=== PATIENT | male | born 2000 | race Caucasian/White ===

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

== ENCOUNTER 2020-07-19 06:45 | Emergency (ER) | payer OTHER ==
[~2020-07-19] VITALS: Ht 177.8 cm; Wt 97.5 kg
--- NOTE | 2020-07-19 06:45 | NUR ---
PT BIB MOM FOR C/O ONGOING NAUSEA/VOMITING X 2 HRS. PT IS AAOX4, NOT IN RESPIRATORY DISTRESS, HOOKED TO OUTSIDE FOOD SERVER, KEPT RESTED AND COMFORTABLE. WILL CONTINUE TO MONITOR.
--- NOTE | 2020-07-19 07:03 | NUR ---
AT BEDSIDE FOR EVAL.
[2020-07-19] MEDS ORDERED: MORPHINE SULFATE INJ 2 MG/ML DISP.SYRIN ONE (07:08)
[2020-07-19] MEDS ORDERED: ONDANSETRON HCL/PF 4 MG/2 ML VIAL ONE (07:08)
--- NOTE | 2020-07-19 07:20 | NUR ---
IV LINE ESTABLISHED BLOOD DRAWN AND SENT TO LAB.
[2020-07-19] MEDS ORDERED: ONDANSETRON HCL/PF 4 MG/2 ML VIAL IVP ONE (07:30)
[2020-07-19] MEDS ORDERED: MORPHINE SULFATE INJ 2 MG/ML DISP.SYRIN IV ONE (07:30)
[2020-07-19] MEDS ORDERED: IV NS 0.9% 1,000 ML BAG IV ONE (07:30)
[2020-07-19 07:35] LABS: BASOPHILS % (AUTO) 0.1 % (0.0-2.0); EOSINOPHILS % (AUTO) 0.5 % (0.0-6.0); HEMATOCRIT 52 % (39-51); HEMOGLOBIN 17.7 g/dL (13.5-17.5); LYMPHOCYTES # (AUTO) 0.4 /CMM (0.8-4.8); LYMPHOCYTES % (AUTO) 5.2 % (20.0-44.0); MEAN CORPUSCULAR HGB CONC 34 g/dl (31.0-36.0); MEAN CORPUSCULAR VOLUME 88 fL (80-96); MONOCYTES # (AUTO) 0.4 /CMM (0.1-1.30); NEUTROPHILS # (AUTO) 7.7 /CMM (1.8-8.9); NEUTROPHILS % (AUTO) 89.2 % (43.0-81.0); PLATELET COUNT (AUTO) 241 /CMM (150-450); RED BLOOD CELL COUNT(AUTO) 5.88 MIL/uL (4.5-6.0); WHITE BLOOD COUNT (AUTO) 8.6 K/uL (4.3-11.0)
[2020-07-19 08:06] LABS: ALBUMIN 4.4 g/dL (3.4-5.0); BILIRUBIN,DIRECT 0.2 mg/dL (0.0-0.2); BILIRUBIN,TOTAL 0.9 mg/dL (0.2-1.0); CALCIUM, SERUM 9.5 mg/dL (8.5-10.1); CREATININE 1.2 mg/dL (0.6-1.3); POTASSIUM 4.2 mmol/L (3.5-5.1); TOTAL PROTEIN, SERUM 8.6 g/dL (6.4-8.2)
[2020-07-19] MEDS ORDERED: ONDA4TAB5 PO (08:17)
[2020-07-19 08:26] VITALS: BP 128/84
--- NOTE | 2020-07-19 08:26 | NUR ---
IV removed. Catheter intact and site benign. Pressure and 4x4 applied to site. No bleeding noted. Patient discharged to home in stable condition. Written and verbal after care instructions given. Patient verbalizes understanding of instruction.
== END 2020-07-19 08:26 | disposition home or self-care (01) ==
LOC: ER 06:50
DX: A05.9 Bacterial foodborne intoxication, unspecified (principal); R11.2 Nausea with vomiting, unspecified; J45.909 Unspecified asthma, uncomplicated; F12.90 Cannabis use, unspecified, uncomplicated; Z88.0 Allergy status to penicillin; Z91.010 Allergy to peanuts; Z79.899 Other long term (current) drug therapy
CPT/HCPCS: 36415; 80048; 80076; 83690; 85025; 96361; 96374; 99283; J2405; J7030; J2270

== ENCOUNTER 2021-06-05 22:59 | Emergency (ER) | payer OTHER ==
[~2021-06-05] VITALS: Ht 177.8 cm; Wt 99.8 kg
[~2021-06-05 22:59] MED LIST changes: +ONDA4TAB5 PO
--- NOTE | 2021-06-05 23:15 | NUR ---
BIB MOM FOR C/O HIGH BP AND HR. HAD AN EPISODE OF COMITING YESTERDAY. TOOK HCTZ 25MG @ 1200 AND 1800. (NOT HIS PRESCRIBED MEDICATION). PATIENT ALERT AND ORIENTED X3. AMBULATORY WITH NON LABORED BREATHING. AWAITING MD DOBBINS.
--- NOTE | 2021-06-05 23:41 | NUR ---
BLOOD COLLECTED AND SENT TO LAB
[2021-06-05 23:45] LABS: BASOPHILS % (AUTO) 0.4 % (0.0-2.0); EOSINOPHILS % (AUTO) 1.2 % (0.0-6.0); HEMATOCRIT 53 % (39-51); HEMOGLOBIN 18.3 g/dL (13.5-17.5); LYMPHOCYTES # (AUTO) 2.8 K/uL (0.8-4.8); LYMPHOCYTES % (AUTO) 34.9 % (20.0-44.0); MEAN CORPUSCULAR HGB CONC 35 g/dl (31.0-36.0); MEAN CORPUSCULAR VOLUME 86 fL (80-96); MONOCYTES # (AUTO) 0.6 K/uL (0.1-1.30); MONOCYTES % (AUTO) 7.6 % (2.0-12.0); NEUTROPHILS # (AUTO) 4.5 K/uL (1.8-8.9); NEUTROPHILS % (AUTO) 55.9 % (43.0-81.0); PLATELET COUNT (AUTO) 233 K/uL (150-450); RED BLOOD CELL COUNT(AUTO) 6.19 MIL/uL (4.5-6.0); WHITE BLOOD COUNT (AUTO) 8.1 K/uL (4.3-11.0)
[2021-06-05 23:58] LABS: CALCIUM, SERUM 9.9 mg/dL (8.5-10.1); CARBON DIOXIDE 29 mmol/L (21-32); CHLORIDE 93 mmol/L (98-107); CREATININE 1.2 mg/dL (0.6-1.3); GLUCOSE 111 mg/dL (74-106); POTASSIUM 3.3 mmol/L (3.5-5.1); SODIUM SERUM 133 mmol/L (136-145); UREA NITROGEN, BLOOD 21 mg/dL (7-18)
--- NOTE | 2021-06-06 00:27 | NUR ---
JOHN ([facility] [place]) [phone]
[2021-06-06] MEDS ORDERED: LORAZEPAM 1 MG TABLET ONE (00:35)
[2021-06-06] MEDS ORDERED: LORAZEPAM 1 MG TABLET PO ONE (01:00)
[2021-06-06] MEDS ORDERED: LABETALOL HCL IV 100MG VIAL ONE (01:29)
[2021-06-06] MEDS ORDERED: LABETALOL HCL IV 100MG VIAL IV ONE (01:30)
[2021-06-06] MEDS ORDERED: METO50TA16 PO (02:13)
--- NOTE | 2021-06-06 02:23 | NUR ---
Patient discharged to home in stable condition. Written and verbal after care instructions given. Patient verbalizes understanding of instruction.
[2021-06-06 02:24] VITALS: BP 139/77
== END 2021-06-06 02:24 | disposition home or self-care (01) ==
LOC: ER 22:59
DX: R00.2 Palpitations (principal); R03.0 Elevated blood-pressure reading, without diagnosis of hypertension; J45.909 Unspecified asthma, uncomplicated; Z88.0 Allergy status to penicillin; Z91.010 Allergy to peanuts; Z79.51 Long term (current) use of inhaled steroids; Z79.1 Long term (current) use of non-steroidal anti-inflammatories (NSAID); Z79.899 Other long term (current) drug therapy
CPT/HCPCS: 36415; 71045; 80048; 84484; 85025; 93005; 96374; 99285; J3490

== ENCOUNTER 2022-05-13 00:03 | Emergency (ER) | payer OTHER ==
[~2022-05-13] VITALS: Ht 177.8 cm; Wt 90.7 kg
[~2022-05-13 00:03] MED LIST changes: +METO50TA16 PO
--- NOTE | 2022-05-13 00:34 | NUR ---
BIBS TO ER BED 7. AAOX4. SOB X 1400 WORST ION THE PAST 2 HRS. INHALER NOT HELPING. SATTING @ 95%. NOTED WHEEZING BILATERALLY. RT PAGED FOR BREATHING TX
[2022-05-13] MEDS ORDERED: DEXAMETHASONE SOD PHOSPHATE 4 MG/ML VIAL IM ONE (01:00)
[2022-05-13] MEDS ORDERED: DEXAMETHASONE SOD PHOSPHATE 10 MG/ML VIAL ONE (01:00)
[2022-05-13] MEDS ORDERED: ALBUTEROL FS 2.5 MG/0.5 ML VIAL.NEB ONE ×2 (01:04→01:50)
[2022-05-13] MEDS: ALBUTEROL FS 2.5 MG/0.5 ML VIAL.NEB NEB ONE ×2 (01:04→01:14)
[2022-05-13] MEDS ORDERED: PRED50TA PO (01:16)
[2022-05-13] MEDS ORDERED: ALBUTEROL FS 2.5 MG/0.5 ML VIAL.NEB NEB ONE (02:00)
--- NOTE | 2022-05-13 02:00 | NUR ---
Patient discharged to home in stable condition. Written and verbal after care instructions given. Patient verbalizes understanding of instruction.
[2022-05-13 03:22] VITALS: BP 139/80
== END 2022-05-13 03:23 | disposition home or self-care (01) ==
LOC: ER 00:04
DX: J45.901 Unspecified asthma with (acute) exacerbation (principal); Z88.0 Allergy status to penicillin; Z91.010 Allergy to peanuts; Z79.899 Other long term (current) drug therapy
CPT/HCPCS: 99285; 96372; 94640 ×2; J1100

== ENCOUNTER 2022-08-17 22:56 | Emergency (ER) | payer OTHER ==
[~2022-08-17] VITALS: Ht 177.8 cm; Wt 88.5 kg
[~2022-08-17 22:56] MED LIST changes: +PRED50TA PO
--- NOTE | 2022-08-17 23:43 | NUR ---
BIBS FOR L ANKLE PAIN ANDSWALLING S/P FALL
--- NOTE | 2022-08-17 23:45 | NUR ---
DR. BAI AT BEDSIDE
--- NOTE | 2022-08-18 00:04 | NUR ---
X-RAY AT BEDSIDE
[2022-08-18] MEDS ORDERED: HYDR-3972 PO (00:21)
[2022-08-18] MEDS ORDERED: HYDROCODONE/APAP 5/325MG TABLET PO ONE (00:30)
[2022-08-18] MEDS ORDERED: HYDROCODONE/APAP 5/325MG TABLET ONE (00:32)
--- NOTE | 2022-08-18 00:39 | NUR ---
Patient discharged to home in stable condition. Written and verbal after care instructions given. Patient verbalizes understanding of instruction.
[2022-08-18 00:40] VITALS: BP 139/100
[2022-08-18] MEDS ORDERED: HYDR-3980 PO (01:06)
== END 2022-08-18 00:39 | disposition home or self-care (01) ==
LOC: ER 22:58
DX: S82.65XA Nondisplaced fracture of lateral malleolus of left fibula, initial encounter for closed fracture (principal); J45.909 Unspecified asthma, uncomplicated; Z88.0 Allergy status to penicillin; Z91.010 Allergy to peanuts; Z79.899 Other long term (current) drug therapy; X50.1XXA Overexertion from prolonged static or awkward postures, initial encounter; Y93.89 Activity, other specified; Y92.89 Other specified places as the place of occurrence of the external cause; Y99.8 Other external cause status
CPT/HCPCS: 73590-TC; 73610-TC

== ENCOUNTER 2022-08-21 16:53 | Emergency (ER) | payer OTHER ==
[~2022-08-21] VITALS: Ht 177.8 cm; Wt 88.5 kg
[~2022-08-21 16:53] MED LIST changes: +HYDR-3980 PO
[2022-08-21 20:48] VITALS: BP 165/80
[2022-08-21] MEDS ORDERED: HYDR-3980 PO (21:08)
--- NOTE | 2022-08-21 21:45 | NUR ---
Patient discharged to home in stable condition. Written and verbal after care instructions given. Patient verbalizes understanding of instruction.
== END 2022-08-21 21:45 | disposition home or self-care (01) ==
LOC: ER 16:56
DX: S82.402D Unspecified fracture of shaft of left fibula, subsequent encounter for closed fracture with routine healing (principal); J45.909 Unspecified asthma, uncomplicated; Z88.0 Allergy status to penicillin; Z91.010 Allergy to peanuts; Z79.51 Long term (current) use of inhaled steroids; Z79.899 Other long term (current) drug therapy; X58.XXXD Exposure to other specified factors, subsequent encounter
CPT/HCPCS: 99283; 29125; J7030